=== PATIENT | male | born 1945 ===

== ENCOUNTER 2018-12-26 07:24 | Outpatient (CLI) | payer OTHER ==
[~2018-12-26 07:24] MED LIST: NORVASC2.5 M1 PO; ULTRACET PO
== END 2018-12-26 07:38 | disposition home or self-care (01) ==
LOC: LAB 07:24
DX: R07.89 Other chest pain (principal); I10 Essential (primary) hypertension; D68.8 Other specified coagulation defects; E78.2 Mixed hyperlipidemia; N39.0 Urinary tract infection, site not specified